=== PATIENT | male | born 1970 | race Caucasian/White ===

== ENCOUNTER 2017-04-11 11:29 | Emergency (ER) | payer SELFPAY, OTHER ==
[2017-04-11] MEDS: IBUPROFEN 800 MG TAB PO (12:02)
[2017-04-11] MEDS: HYDROCODONE/APAP (5/325) TAB PO (12:02)
== END 2017-04-11 14:27 | disposition home or self-care (01) ==
LOC: FTE 11:29
DX: S22.41XA Multiple fractures of ribs, right side, initial encounter for closed fracture (principal); I10 Essential (primary) hypertension; X58.XXXA Exposure to other specified factors, initial encounter; Y92.9 Unspecified place or not applicable
CPT/HCPCS: 71045; 71100; 99284-25

== ENCOUNTER 2017-04-12 06:41 | Emergency (ER) | payer MEDICAID | END 2017-04-12 09:19 | disposition home or self-care (01) | LOC: FTE 06:41 | DX: S22.41XD Multiple fractures of ribs, right side, subsequent encounter for fracture with routine healing (principal); I10 Essential (primary) hypertension; X58.XXXD Exposure to other specified factors, subsequent encounter | CPT/HCPCS: 71045; 99284-25 ==